=== PATIENT | male | born 2000 | race Caucasian/White ===

== ENCOUNTER 2019-04-27 16:47 | Emergency (ER) | payer OTHER, BC ==
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
[2019-04-27] MEDS ORDERED: Cyclobenzaprine 10 MG Tab PO ONE (17:12)
[2019-04-27] MEDS ORDERED: Ketorolac 60 MG/2 ML SDV IM ONE (17:12)
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
[2019-04-27 18:44] VITALS: BP 139/68; PULSE 86
== END 2019-04-27 18:36 | disposition home or self-care (01) ==
LOC: MW.ED 16:47
DX: S16.1XXA Strain of muscle, fascia and tendon at neck level, initial encounter (principal); S29.012A Strain of muscle and tendon of back wall of thorax, initial encounter; Z88.0 Allergy status to penicillin; V43.52XA Car driver injured in collision with other type car in traffic accident, initial encounter; Y92.410 Unspecified street and highway as the place of occurrence of the external cause
CPT/HCPCS: 72040; 72070; 96372; 99283; A9270; J1885

== ENCOUNTER 2021-07-25 17:00 | Emergency (ER) | payer SELFPAY ==
[2021-07-25 17:45] VITALS: BP 128/85; PULSE 78
--- NOTE | 2021-07-25 18:05 | EDM.PDOC ---
ED HPI GENERAL MEDICAL PROBLEM - General Chief Complaint: Lower Extremity Injury/Pain Stated Complaint: SLIPPED ON ICE Time Seen by Provider: 07/25/21 18:01 - History of Present Illness INITIAL COMMENTS - FREE TEXT/NARRATIVE: History of present illness: [] The patient describes what he says is a dislocation of his knee that happens frequently and he popped it back into place. From his description it looks to me like his patella slides out of place he is able to reposition it. This time he slipped on the ice and hit his shoulder but did not hit his knee. However since he did that he felt like his knee was out of place and he feels like it is still out of place. He tried to bear weight and it is too painful. This pain when he tries to bear weight is new and different. Review of systems: As per history of present illness and below otherwise all systems reviewed and negative. Past medical history: As per history of present illness and as reviewed below otherwise noncontributory. Surgical history: As per history of present illness and as reviewed below otherwise noncontributory. Social history: No reported history of drug or alcohol abuse. Family history: As per history of present illness and as reviewed below otherwise noncontributory. Physical exam: Constitutional - well developed, well-nourished and in no acute distress HEENT - normocephalic, no evidence of trauma - external nose and mouth normal - no mass in neck and no JVD - mucosae moist EYES - full EOM, PERRL, no icterus - no evidence of inflammation, injection, or drainage Respiratory - no respiratory distress, equal bilateral expansion Musculoskeletal tender anterior and lateral right knee. Otherwise no gross deformity of long bones or joints - no tenderness, swelling or edema Neurologic - Alert and oriented times four - CN II-XII grossly intact - motor sensory and coordination symmetrically normal Psychiatric - appropriate mood and affect with normal thought content Hematologic - No petechiae or purpura - mucosa appropriate color and sclera not pale - normal nail bed color and refill Integument - no rash or evidence of trauma - normal turgor Diagnostics: [] Therapeutics: [] Impression: [] Plan: [] Definitive disposition and diagnosis as appropriate pending reevaluation and review of above. right knee Pain Score (Numeric/FACES): 2 - Related Data Allergies Allergy/AdvReac Type Severity Reaction Status Date / Time Penicillins Allergy Rash Verified 07/25/21 17:36 Home Meds: Home Meds . [No Known Home Meds] 07/25/21 [History] Past Medical History - Past Health History Medical/Surgical History: Denies Medical/Surgical History - Infectious Disease History Infectious Disease History: Reports: None - Past Surgical History HEENT Surgical History: Reports: Adenoidectomy, Tonsillectomy, Other (See Below) Social & Family History - Family History Family Medical History: No Pertinent Family History - Caffeine Use Caffeine Use: Reports: Coffee, Soda, Tea Review of Systems - Review of Systems Review Of Systems: Comprehensive ROS is negative, except as noted in HPI. ED EXAM, GENERAL - Physical Exam Exam: See Below Free Text/Narrative:: My physical exam is in the HPI Course - Vital Signs Last Recorded V/S: Last Vital Signs Temp 36.6 C 07/25/21 17:37 Pulse 78 07/25/21 17:37 Resp 15 07/25/21 17:37 BP 128/85 07/25/21 17:37 Pulse Ox 97 07/25/21 17:37 - Orders/Labs/Meds Orders: Active Orders 24 hr Category Date Time Status Knee 3V Rt [CR] Stat Exams 07/25/21 17:37 Ordered DME for Discharge [COMM] Stat Oth 07/25/21 18:29 Ordered - Re-Assessments/Exams Free Text/Narrative Re-Assessment/Exam: 07/25/21 18:31 The patient's x-ray was unremarkable. Anterior posterior drawer and varus valgus stress are not giving any instability but there is significant swelling of the knee with tenderness on the lateral knee. Plan to the immobilizer ice and elevate and recheck in Ortho clinic. Free Text/Narrative Re-Assessment/Exam: 07/25/21 18:32 Neurovascular integrity verified at the knee immobilizer Departure - Departure Time of Disposition: 18:40 Disposition: Home, Self-Care 01 Condition: Good Clinical Impression: Sprain of unspecified site of right knee, initial encounter - Discharge Information Instructions: Knee Sprain, Adult, [id number] Forms: ED Department Discharge Additional Instructions: Wear the immobilizer ice and elevate for 2 days. Instead of plain ice it is easier to buy frozen peas or something that will form to the shape of your knee. Follow-up in 2 days to recheck stability when the swelling is down. [facility] - [facility] Professional Building [address] [place] [address], [address] [place] [address] The following information is given to patients seen in the emergency department who are being discharged to home. This information is to outline your options for follow-up care. We provide all patients seen in our emergency department with a follow-up referral. The need for follow-up, as well as the timing and circumstances, are variable depending upon the specifics of your emergency department visit. If you don't have a primary care physician on staff, we will provide you with a referral. We always advise you to contact your personal physician following an emergency department visit to inform them of the circumstance of the visit and for follow-up with them and/or the need for any referrals to a consulting specialist. The emergency department will also refer you to a specialist when appropriate. This referral assures that you have the opportunity for follow-up care with a specialist. All of these measure are taken in an effort to provide you with optimal care, which includes your follow-up. Under all circumstances we always encourage you to contact your private physician who remains a resource for coordinating your care. When calling for follow-up care, please make the office aware that this follow-up is from your recent emergency room visit. If for any reason you are refused follow-up, please contact the [facility] Emergency Department at and asked to speak to the emergency department charge nurse. Sepsis Event Note (ED) - Evaluation Sepsis Screening Result: No Definite Risk - Focused Exam Vital Signs: Vital Signs Temp Pulse Resp BP Pulse Ox 07/25/21 17:37 36.6 C 78 15 128/85 97 - My Orders Last 24 Hours: My Active Orders 07/25/21 17:37 Knee 3V Rt [CR] Stat 07/25/21 18:29 DME for Discharge [COMM] Stat - Assessment/Plan Last 24 Hours: My Active Orders 07/25/21 17:37 Knee 3V Rt [CR] Stat 07/25/21 18:29 DME for Discharge [COMM] Stat
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
== END 2021-07-25 19:36 | disposition home or self-care (01) ==
LOC: MW.ED 17:00
DX: S83.91XA Sprain of unspecified site of right knee, initial encounter (principal); Z88.0 Allergy status to penicillin; W00.0XXA Fall on same level due to ice and snow, initial encounter
CPT/HCPCS: 73562-26-RT; 73562-RT; 99283